=== PATIENT | male | born 1945 | race African-American/Black ===

== ENCOUNTER 2018-04-30 09:02 | Outpatient (CLI) | payer MEDICARE ==
[2018-04-30 09:48] LABS: BUN/Creatinine Ratio 9; Blood Urea Nitrogen 10 mg/dL (9-20); Calcium 9.3 mg/dL (8.4-10.2); Hemolysis Index 5
--- NOTE | 2018-04-30 10:17 | Cat Scan Report ---
CTA chest: History: Shortness of breath. Findings: No evidence of aortic aneurysm or pulmonary embolism. No mediastinal mass or adenopathy. Normal lung parenchyma. No discrete nodularity or consolidation. Impression: No evidence of pulmonary embolism. No evidence of acute lung changes.
== END 2018-04-30 09:03 | disposition home or self-care (01) ==
LOC: CT 09:02
PROVIDERS: ATTEND Internal Medicine
DX: R06.02 Shortness of breath (principal); E78.00 Pure hypercholesterolemia, unspecified; I10 Essential (primary) hypertension; K21.9 Gastro-esophageal reflux disease without esophagitis
CPT/HCPCS: 36415; 71275; 80048; 93970; Q9967

== ENCOUNTER 2020-10-18 07:10 | Observation (INO) | payer MEDICARE ==
[2020-10-18] MEDS ORDERED: ASPIRIN EC 325 MG TAB PO NR (08:19)
[2020-10-18 08:43] LABS: Basophils # (Auto) 0.1 K/mm3 (0.0-0.1); Basophils % (Auto) 0.7 % (0.0-1.8); Eosinophils # (Auto) 0.7 K/mm3 (0.0-0.4); Eosinophils % (Auto) 8.8 % (0.0-4.3); Hematocrit 42.5 % (35.5-45.6); Hemoglobin 15.1 gm/dl (11.8-15.2); Lymphocytes # (Auto) 1.6 K/mm3 (1.2-5.4); Lymphocytes % (Auto) 18.9 % (13.4-35.0); Mean Corpuscular HGB Conc 36 % (32-34); Mean Corpuscular Volume 95 fl (84-94); Monocytes # (Auto) 0.8 K/mm3 (0.0-0.8); Monocytes % (Auto) 9.7 % (0.0-7.3); Platelet Count 282 K/mm3 (140-440); Red Blood Count 4.47 M/mm3 (3.65-5.03); Red Cell Distribution Width 12.4 % (13.2-15.2)
[2020-10-18 08:53] LABS: INR 0.91 (0.87-1.13)
[2020-10-18 08:54] LABS: Partial Thromboplastin Time 31.4 Sec. (24.2-36.6)
[2020-10-18 08:56] LABS: BUN/Creatinine Ratio 8; Blood Urea Nitrogen 8 mg/dL (9-20); Calcium 9.3 mg/dL (8.4-10.2); Hemolysis Index 7
[2020-10-18] MEDS ORDERED: SODIUM CHLORIDE 0.9% 500 ML 500 ML IV SCH (09:00)
[2020-10-18] MEDS: fentaNYL 100 MCG/2 ML INJ ONE ×2 (10:36→11:01)
[2020-10-18] MEDS: MIDAZOLAM 2 MG/2 ML INJ ONE ×2 (10:36→11:01)
[2020-10-18] MEDS: VERAPAMIL 5 MG/2 ML INJ ONE ×2 (10:37→11:08)
[2020-10-18] MEDS: LIDOCAINE (2%) 20 MG/1 ML VIAL 20 ML MDV INFILTRATI ONE ×2 (10:37→11:03)
[2020-10-18] MEDS: HEPARIN 10,000 UNITS/10 ML VIAL ONE ×3 (10:37→11:17)
[2020-10-18] MEDS: HEPARIN/NS 5000 UNIT/500ML 1,000 ML IR ONE ×2 (10:38→11:00)
[2020-10-18] MEDS: NITROGLYCERIN SYRINGE 3 ML ONE ×2 (10:38→11:08)
[2020-10-18] MEDS ORDERED: CLOPIDOGREL 300 MG TAB ONE (11:32)
[2020-10-18] MEDS ORDERED: METOPROLOL TARTRATE 5 MG/5 ML INJ IV ONE (11:32)
[2020-10-18] MEDS ORDERED: ALUM-MAG HYDROXIDE-SIMETHICONE 200-200-20MG/5ML ORAL LIQD 30 ML ONE (11:33)
--- NOTE | 2020-10-18 11:58 | Cardiac Catherization Report ---
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 PROCEDURES: 1. Left heart catheterization. 2. Selective left and right coronary angiography. 3. Left ventricular angiography. 4. Coronary angioplasty and stenting of the diagonal branch of the LAD. 5. Sedation time, start 11:01, and 11:31. I was present for the entire procedure and supervised the moderate sedation protocol. DESCRIPTION OF PROCEDURE: The patient was prepped and draped in a sterile fashion after informed consent. The right radial cath site was prepped and draped after a negative Alejo's test. The right radial artery was entered using Seldinger technique followed by placement of a 6-Yoruba hydrophilic sheath. Routine radial cocktail was administered via the sheath. Selective left and right coronary angiography was performed using a #3.5 left Antelmo, and a #4 right Antelmo. The right Antelmo was used for left ventricular angiography. The angiograms were reviewed. CORONARY ANGIOGRAPHY: The left main coronary artery was free of significant disease. A small to medium sized proximal diagonal branch of the LAD was notable to contain a stent in its proximal portion. The diagonal branch stent was patent with no significant restenosis. However, just distal to the stent, there was a long, up to 80% de maegan stenosis of the mid segment of the diagonal branch. Otherwise, the rest of the LAD system was free of significant disease, with only mild luminal irregularities of the mid LAD. The circumflex artery and its obtuse marginal branches were angiographically normal. The right coronary artery was a large, dominant vessel, with mild luminal irregularities in its mid segment. LEFT VENTRICULAR ANGIOGRAPHY: There was mild left ventricular systolic dysfunction with mild diffuse hypokinesis with ejection fraction estimated at 45%. CORONARY ANGIOPLASTY: After review of the angiograms, we commenced ad hoc coronary intervention to the diagonal branch of the LAD. As noted, this was a de maegan stenosis of the mid segment of this branch outside the previous stented segment. We switched for a #3.5 left Antelmo guiding catheter and advanced to the left coronary ostium. A 0.014 inch Burner Machine Operator 50 guidewire was directed into the diagonal branch, across the lesional segment. In a primary stenting maneuver, we deployed a 2.25 x 12 mm drug-eluting stent, across the lesional segment, and inflated the stent to optimal pressures. Following the stenting, there was an excellent angiographic result, 0 residual stenosis and NISH 3 flow was maintained down the diagonal branch. The patient tolerated the procedure well and there were no complications. The catheters and the wires were removed, sheath removed, and hemostasis achieved using a TR band. He was returned to the postprocedure unit in stable condition. There were no complications. CONCLUSION: 1. Coronary artery disease with single vessel disease of the diagonal branch of the LAD. 2. Patent previous coronary stent implanted in the proximal segment of the diagonal branch. 3. Severe de maegan stenosis of the mid segment of the diagonal branch, immediately outside the previous stented segment. 4. Successful ad hoc angioplasty and stenting of the mid diagonal branch, with successful deployment of a 2.25 x 12 mm drug-eluting stent. 5. Mild left ventricular systolic dysfunction, ejection fraction 45%. [facility]# [id number] GENESIS/NTS
[2020-10-18] MEDS ORDERED: ACETAMINOPHEN 325 MG TAB PO PRN (12:01)
[2020-10-18] MEDS ORDERED: ONDANSETRON 4 MG/2 ML INJ IV PRN (12:01)
[2020-10-18] MEDS ORDERED: traMADol 50 MG TAB PO PRN (12:01)
[2020-10-18] MEDS ORDERED: ZOLPIDEM 5 MG TAB PO PRN (12:01)
--- NOTE | 2020-10-18 12:07 | Event Note ---
Date: 10/18/20 The patient underwent outpatient cardiac catheterization via the right radial approach, indication was chest pain and abnormal thallium stress test. We found an 80% stenosis of the mid segment of the first diagonal branch of the LAD, and we treated this lesion with a 2.25 x 12 mm drug-eluting stent with an excellent angiographic result. No complications. Patient is admitted for 23-hour post PCI observation, anticipate discharge tomorrow morning. We have commenced dual oral antiplatelet therapy with Plavix.
[2020-10-18] MEDS ORDERED: SODIUM CHLORIDE 0.9% 1000 ML 1,000 ML IV SCH (12:15)
[2020-10-18] MEDS ORDERED: ASPIRIN 81 MG TAB CHEW PO SCH (13:00)
[2020-10-18] MEDS: PANTOPRAZOLE 40 MG TAB PO SCH (13:41)
[2020-10-18] MEDS: METOPROLOL TARTRATE 25 MG TAB PO SCH ×2 (13:41→21:54)
[2020-10-18] MEDS ORDERED: GABAPENTIN 300 MG CAP PO SCH (22:00)
[2020-10-18] MEDS ORDERED: AMITRIPTYLINE 25 MG TAB PO SCH (22:00)
[2020-10-19 06:19] LABS: Basophils # (Auto) 0.1 K/mm3 (0.0-0.1); Basophils % (Auto) 0.5 % (0.0-1.8); Eosinophils # (Auto) 0.7 K/mm3 (0.0-0.4); Hematocrit 43.2 % (35.5-45.6); Lymphocytes # (Auto) 1.5 K/mm3 (1.2-5.4); Lymphocytes % (Auto) 15.1 % (13.4-35.0); Mean Corpuscular HGB Conc 35 % (32-34); Mean Corpuscular Volume 95 fl (84-94); Platelet Count 276 K/mm3 (140-440); Red Blood Count 4.55 M/mm3 (3.65-5.03); Red Cell Distribution Width 12.4 % (13.2-15.2)
[2020-10-19 06:40] LABS: Creatine Kinase MB 2.1 ng/mL (0.0-4.0)
[2020-10-19 06:42] LABS: BUN/Creatinine Ratio 12; Blood Urea Nitrogen 11 mg/dL (9-20); Calcium 8.9 mg/dL (8.4-10.2); Hemolysis Index 5
--- NOTE | 2020-10-19 08:34 | XRay Report ---
CHEST 1 VIEW INDICATION: post pci. COMPARISON: None FINDINGS: Support devices: None. Heart: Within normal limits. Lungs/Pleura: No acute air space or interstitial disease. No pneumothorax. Additional findings: None. IMPRESSION: No acute findings. Signer Name: Frederic Benavidez Jr, MD Signed: 10/19/2020 8:29 AM Workstation Name: [id number]
[2020-10-19 09:21] VITALS: BP 119/77
[2020-10-19] MEDS: METOPROLOL TARTRATE 25 MG TAB PO SCH (09:25)
[2020-10-19] MEDS: PANTOPRAZOLE 40 MG TAB PO SCH (09:25)
--- NOTE | 2020-10-19 09:43 | Short Stay Summary ---
Short Stay Documentation Date of service: 10/19/20 - History H&P: obtained from office - Allergies and Medications Current Medications: Allergies Penicillins Adverse Reaction (Mild, Verified 05/16/13 10:51) Dizziness Patient states this was 20 years ago Home Medications Medication Instructions Recorded Confirmed Last Taken Type Aspirin [Baby Aspirin] 81 mg PO ONCE 05/16/13 10/18/20 10/17/20 History 81 mg Atorvastatin [Lipitor] 40 mg PO QHS 05/16/13 10/18/20 10/17/20 History 40 mg Metoprolol [Lopressor] 25 mg PO BID 05/16/13 10/18/20 10/17/20 History 25 mg Amitriptyline [Elavil] 25 mg PO HS 10/18/20 10/18/20 10/17/20 History 25 mg Gabapentin 300 mg PO HS 10/18/20 10/18/20 10/17/20 History 300 mg ISOSORBIDE MONOnitrate [Imdur ER] 15 mg PO DAILY 10/18/20 10/18/20 10/17/20 History 15 mg Pantoprazole [Protonix TAB] 40 mg PO DAILY 10/18/20 10/18/20 10/17/20 History 300 mg Tamsulosin [Flomax] 0.4 mg PO DAILY 10/18/20 10/18/20 10/17/20 History 0.4mg Active Medications Acetaminophen (Acetaminophen 325 Mg Tab) 650 mg PO Q4H PRN PRN Reason: Pain MILD(1-3)/Fever >100.5/[place] Amitriptyline HCl (Amitriptyline 25 Mg Tab) 25 mg PO [facility] Last Admin: 10/18/20 21:54 Dose: 25 mg Documented by: Aspirin (Aspirin 81 Mg Tab Chew) 81 mg PO QDAY [facility] Last Admin: 10/19/20 09:25 Dose: 81 mg Documented by: Atorvastatin Calcium (Atorvastatin 40 Mg Tab) 40 mg PO QHS [facility] Last Admin: 10/18/20 21:54 Dose: 40 mg Documented by: Clopidogrel Bisulfate (Clopidogrel 75 Mg Tab) 75 mg PO QDAY [facility] Last Admin: 10/19/20 09:25 Dose: 75 mg Documented by: Gabapentin (Gabapentin 300 Mg Cap) 300 mg PO [facility] Last Admin: 10/18/20 21:54 Dose: 300 mg Documented by: Isosorbide Mononitrate (Isosorbide Mononitrate Er 30 Mg Tab) 15 mg PO DAILY [facility] Last Admin: 10/19/20 09:25 Dose: 15 mg Documented by: Metoprolol Tartrate (Metoprolol Tartrate 25 Mg Tab) 25 mg PO BID [facility] Last Admin: 10/19/20 09:25 Dose: 25 mg Documented by: Ondansetron HCl (Ondansetron 4 Mg/2 Ml Inj) 4 mg IV Q8H PRN PRN Reason: N/V unrelieved by Reglan Pantoprazole Sodium (Pantoprazole 40 Mg Tab) 40 mg PO DAILY [facility] Last Admin: 10/19/20 09:25 Dose: 40 mg Documented by: Tamsulosin HCl (Tamsulosin 0.4 Mg Cap) 0.4 mg PO DAILY [facility] Tramadol HCl (Tramadol 50 Mg Tab) 50 mg PO Q4H PRN PRN Reason: Pain, Mild (1-3) Zolpidem Tartrate (Zolpidem 5 Mg Tab) 5 mg PO QHS PRN PRN Reason: Sleep - Physical exam General appearance: no acute distress HEENT: PERRLA Lungs: Clear to auscultation Heart: Regular rate, Normal S1, Normal S2, No murmurs Extremities: No edema - Brief post op/procedure progress note Procedure: The patient underwent outpatient cardiac catheterization via the right radial approach, indication was chest pain and abnormal thallium stress test. We found an 80% stenosis of the mid segment of the first diagonal branch of the LAD, and we treated this lesion with a 2.25 x 12 mm drug-eluting stent with an excellent angiographic result. No complications. Condition: stable - Hospital course Hospital course: Stable overnight observation. - Disposition Condition at discharge: Stable Disposition: [id number]-01 TO HOME OR SELFCARE Short Stay Discharge Plan Activity: advance as tolerated Weight Bearing Status: Full Weight Bearing Diet: low fat, low cholesterol, low salt Wound: open to air, keep clean and dry Follow up with: GINA CLAROS MD [Primary Care Provider] - 7 Days NIGHAT MARSHALL MD [Staff Physician] - 7 Days Prescriptions: Clopidogrel [Plavix] 75 mg PO QDAY #30 tablet
[2020-10-19] MEDS ORDERED: TAMSULOSIN 0.4 MG CAP PO SCH (10:00)
[2020-10-19] MEDS ORDERED: CLOPIDOGREL 75 MG TAB PO SCH (10:00)
[2020-10-19] MEDS ORDERED: ASPIRIN 81 MG TAB CHEW PO SCH (10:00)
== END 2020-10-19 11:17 | disposition home or self-care (01) ==
LOC: CATHLABREC 07:10 → 4A 12:01
PROVIDERS: ADMIT Internal Medicine Cardiovascular Disease; ATTEND Internal Medicine Cardiovascular Disease
DX: I25.10 Atherosclerotic heart disease of native coronary artery without angina pectoris (principal); Z98.61 Coronary angioplasty status; Z79.82 Long term (current) use of aspirin; Z79.899 Other long term (current) drug therapy
CPT/HCPCS: 36415; 71045; 80048; 82550; 82553; 82962; 84484; 85025; 85610; 85730; 93005; 93458; 96360; A9270; C1769; C1874; C1887; C1894; C9600; G0378; J1644; J2250; J3010; J7030; J7040; 92928; Q9967